=== PATIENT | female | born 1980 | race African-American/Black ===

== ENCOUNTER 2017-04-21 17:11 | Emergency (ER) | payer OTHER ==
[~2017-04-21] VITALS: Ht 160 cm; Wt 82.1 kg
[2017-04-21 18:24] LABS: COLOR ND ((YELLOW))
[2017-04-21 18:25] LABS: ADD MIUA? ND; BILIRUBIN ND; BLOOD ND; GLUCOSE (STRIP) ND; KETONES ND; LEUKOCYTES ND; NITRITE ND; PH, URINE ND (5-8); PROTEIN (STRIP) ND; SPECIFIC GRAVITY ND (1.000-1.030); UROBILINOGEN ND MG/DL (0.2-1.0)
[2017-04-21 18:26] LABS: BACTERIA ND /HPF; EPITHELIAL CELLS ND /HPF; MUCUS ND /LPF; RED BLOOD CELLS ND /HPF (0-5); UCUL ADDED? ND; URINE COMMENT 1 ND; WHITE BLOOD CELLS ND /HPF (0-5)
[2017-04-21 18:38] LABS: ADD MIUA? YES; BILIRUBIN NEGATIVE; BLOOD LARGE; COLOR YELLOW ((YELLOW)); GLUCOSE (STRIP) NEGATIVE; KETONES NEGATIVE; LEUKOCYTES NEGATIVE; NITRITE NEGATIVE; PROTEIN (STRIP) 100; SPECIFIC GRAVITY 1.031 (1.000-1.030); UROBILINOGEN 0.2 MG/DL (0.2-1.0)
[2017-04-21 18:43] LABS: HEMATOCRIT 37.2 % (36.0-46.0); MCH 28.7 PG (29.0-34.0); MCHC 33.6 G/DL (30.0-36.0); MCV 85.5 FL (83-99); MEAN PLAT.VOLUME 9.3 uM^3 (9.5-12.4); PLATELET COUNT 281 K/uL (156-360); RBC DIS.WIDTH-CV 12.8 % (11.8-14.6); RBC DIS.WIDTH-SD 39.7 % (39-53); RED BLOOD COUNT 4.35 M/uL (3.80-5.20); WHITE BLOOD COUNT 5.5 K/uL (4.1-10.2)
[2017-04-21 19:01] LABS: RED BLOOD CELLS TNTC /HPF (0-5)
[2017-04-21 19:02] LABS: BACTERIA RARE /HPF; CASTS NONE SEEN /LPF; CRYSTALS NONE SEEN; EPITHELIAL CELLS 1+ /HPF; MUCUS 3+ /LPF; UCUL ADDED? NO; WHITE BLOOD CELLS 0-5 /HPF (0-5)
[2017-04-21 19:34] VITALS: BP 144/88
== END 2017-04-21 19:41 | disposition home or self-care (01) ==
LOC: EME 17:11 → EXP 17:11 → EME 19:41
PROVIDERS: Nurse Practitioner Family
DX: O20.0 Threatened abortion (principal); Z3A.01 Less than 8 weeks gestation of pregnancy; Z87.891 Personal history of nicotine dependence; Z85.850 Personal history of malignant neoplasm of thyroid; Z88.6 Allergy status to analgesic agent
CPT/HCPCS: 81003; 84702; 85027; 99281; 99284